=== PATIENT | male | born 1960 | race Caucasian/White ===

== ENCOUNTER 2017-12-15 16:44 | Emergency (ER) | payer OTHER ==
--- NOTE | 2017-12-15 17:11 | EDM.PDOC ---
ED HPI GENERAL MEDICAL PROBLEM - General Stated Complaint: OBJECT IN LEFT ARM Time Seen by Provider: 12/15/17 16:44 Source of Information: Reports: Patient, Family (SO) History Limitations: Reports: No Limitations - History of Present Illness INITIAL COMMENTS - FREE TEXT/NARRATIVE: 57 years old w m with a h/o HTN and tinnitus came to the ed with his SO after a metallic FB went into his left mid forearm while working with a metallic table saw in his own shop at home. 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 No loss of function, pt noticed some minor swelling where the PB injected. No N/V/D or any other acute medical issues. BP 177/92 RR 17 Pulse ox 97% on RA temp 36.8 pulse 72 Onset Date: 12/15/17 Onset Time: 16:00 Duration: Minutes: Location: Reports: Upper Extremity, Left Quality: Reports: Ache, Burning, Dull Severity: Mild Improves with: Reports: Rest Worsens with: Reports: Movement Context: Reports: Trauma (Metallic FB left forearm) Associated Symptoms: Reports: No Other Symptoms left forearm Pain Score (Numeric/FACES): 1 - Related Data Allergies Allergy/AdvReac Type Severity Reaction Status Date / Time No Known Allergies Allergy Verified 12/15/17 17:05 Home Meds: Home Meds . [Unable to Verify Home Med List] 12/15/17 [History] Review of Systems - Review of Systems Review Of Systems: See Below Constitutional: Reports: No Symptoms Eyes: Reports: No Symptoms Ears: Reports: No Symptoms Nose: Reports: No Symptoms Mouth/Throat: Reports: No Symptoms Respiratory: Reports: No Symptoms Cardiovascular: Reports: No Symptoms GI/Abdominal: Reports: No Symptoms Genitourinary: Reports: No Symptoms Musculoskeletal: Reports: Arm Pain (left arm) Skin: Reports: Lumps (left forearm) Neurological: Reports: No Symptoms Psychiatric: Reports: No Symptoms ED EXAM, GENERAL - Physical Exam Exam: See Below Exam Limited By: No Limitations General Appearance: Alert, WD/WN, Mild Distress Eye Exam: Bilateral Eye: Normal Inspection Ears: Normal External Exam Ear Exam: Bilateral Ear: Auricle Normal Nose: Normal Inspection, Normal Mucosa, No Blood Throat/Mouth: Normal Inspection, Normal Lips, Normal Gums, Normal Oropharynx, Normal Voice, No Airway Compromise Head: Atraumatic, Normocephalic Neck: Normal Inspection, Supple, Non-Tender, Full Range of Motion Respiratory/Chest: No Respiratory Distress, Lungs Clear, Normal Breath Sounds, No Accessory Muscle Use, Chest Non-Tender Cardiovascular: Normal Peripheral Pulses, Regular Rate, Rhythm, No Edema, No Gallop, No JVD, No Murmur, No Rub GI/Abdominal: Normal Bowel Sounds, Soft, Non-Tender, No Organomegaly, No Distention, No Abnormal Bruit, No Mass, Pelvis Stable (Male) Exam: Deferred Rectal (Males) Exam: Deferred Back Exam: Normal Inspection, Full Range of Motion Extremities: Normal Range of Motion, Other (tender left mid forarm) Neurological: Alert, Oriented, CN II-XII Intact, Normal Cognition, Normal Gait Psychiatric: Normal Affect, Normal Mood Skin Exam: Warm, Dry, Normal Color, Wound/Incision (punctured wound mid left forearm) Lymphatic: No Adenopathy Course - Vital Signs Text/Narrative:: 57 years old w m with a h/o HTN and tinnitus came to the ed with his SO after a metallic FB went into his left mid forearm while working with a metallic table saw in his own shop at home. 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 No loss of function, pt noticed some minor swelling where the PB injected. No N/V/D or any other acute medical issues. BP 177/92 RR 17 Pulse ox 97% on RA temp 36.8 pulse 72 PE: WNWD W M with metalic FB left mid forearm Imaging: Metallic FB left mid forearm Impression: Metallic FB left mid forearm Tx: Rocephin, dressing 5.21pm Consultation: Dr. Syed, Surgeon: This is not an emergency situation. Dr. Syed will take care of it, under fluoroscopy, this Saturday after 10 am at the [facility] in [place] . Reexam: Improved Plan: D/C with instructions Last Recorded V/S: Last Vital Signs Temp 36.7 C 12/15/17 17:00 Pulse 73 12/15/17 17:46 Resp 17 12/15/17 17:46 BP 149/89 H 12/15/17 17:46 Pulse Ox 100 12/15/17 17:46 - Orders/Labs/Meds Orders: Active Orders 24 hr Category Date Time Status Forearm 2V Lt [CR] Stat Exams 12/15/17 16:53 Taken Meds: Medications Discontinued Medications Generic Name Dose Route Start Last Admin Trade Name Uriah PRN Reason Stop Dose Admin Ceftriaxone Sodium 1,000 mg 12/15/17 17:30 12/15/17 17:37 Rocephin IM 12/15/17 17:31 1,000 mg ONETIME ONE Administration Departure - Departure Time of Disposition: 17:34 Disposition: Home, Self-Care 01 Condition: Good Clinical Impression: Foreign body in left forearm Qualifiers: Encounter type: initial encounter Qualified Code(s): S50.852A - Superficial foreign body of left forearm, initial encounter - Discharge Information Referrals: PCP,Not In Area [Primary Care Provider] - Kris Syed MD [Physician] - Forms: ED Department Discharge Additional Instructions: Please f/u with Dr. Syed, Surgeon, at the [facility] in [place] after 10 am tomorrow. Please come back to the ED if your symptoms get worse acutely. - My Orders Last 24 Hours: My Active Orders 12/15/17 16:53 Forearm 2V Lt [CR] Stat - Assessment/Plan Last 24 Hours: My Active Orders 12/15/17 16:53 Forearm 2V Lt [CR] Stat
[2017-12-15] MEDS ORDERED: cefTRIAXone 1,000 MG VIAL IM ONE (17:30)
== END 2017-12-15 17:46 | disposition home or self-care (01) ==
LOC: FB.ED 16:44
DX: S50.852A Superficial foreign body of left forearm, initial encounter (principal); I10 Essential (primary) hypertension; W45.8XXA Other foreign body or object entering through skin, initial encounter
CPT/HCPCS: 73090-LT; 96372; 99283; J0696